=== PATIENT | female | born 1935 | race Caucasian/White ===

== ENCOUNTER 2023-07-21 08:09 | Emergency (ER) | payer MEDICARE, SELFPAY ==
[2023-07-21 08:10] VITALS: BP 159/77; PULSE 75; RESP 16; TEMP 36.7; O2SAT 98; BMI 25.4
--- NOTE | 2023-07-21 08:12 | ED.FALL1 ---
HPI - Fall General Chief Complaint: Fall Stated Complaint: FALL Time Seen by Provider: 07/21/23 08:12 History of Present Illness HPI Narrative: 88-year-old female presents from [facility] for a fall. She has dementia and cannot provide a good history. She apparently fell this morning and hit her left forehead and her left hand. No known LOC. No chest pain or shortness of breath. No further history is obtainable. Related Data Allergies Allergy/AdvReac Type Severity Reaction Status Date / Time No Known Drug Allergies Allergy Verified 07/21/23 08:15 Review of Systems ROS Narrative Not obtainable, dementia PFSH PFS Social History Smoking status: Former smoker Exam Narrative Exam Narrative: Nurses note and vital signs reviewed and patient is not hypoxic. General: The patient appears in no apparent distress. Patient is resting comfortably on cart. Skin: Warm, dry, no pallor noted. There is no rash noted. Head: Normocephalic, hematoma present on the left forehead. Eye: Normal conjunctiva, no drainage Ears, Nose, Mouth, and Throat: oral mucosa is moist. Nares patent. Cardiovascular: Regular Rate and Rhythm Respiratory: Patient is in no distress, no accessory muscle use, lungs are clear to auscultation, no wheezing, rales or rhonchi Back: non-tender GI: Soft and nontender Musculoskeletal: Hips have full range of motion. Bruising and swelling is present on the dorsum of her left hand. Neurological: A&O, normal speech Psychiatric: Cooperative Constitutional Vital Signs, click to edit/add: Last Vital Signs Temp 98.0 F 07/21/23 08:10 Pulse 75 07/21/23 08:10 Resp 16 07/21/23 08:10 BP 159/77 H 07/21/23 08:10 Pulse Ox 98 07/21/23 08:10 O2 Del Method Room Air 07/21/23 08:10 Course Vital Signs Vital signs: Vital Signs Temperature 98.0 F 07/21/23 08:10 Pulse Rate 75 07/21/23 08:10 Respiratory Rate 16 07/21/23 08:10 Blood Pressure 159/77 H 07/21/23 08:10 Pulse Oximetry 98 07/21/23 08:10 Oxygen Delivery Method Room Air 07/21/23 08:10 Temperature 98.0 F 07/21/23 08:10 Pulse Rate 75 07/21/23 08:10 Respiratory Rate 16 07/21/23 08:10 Blood Pressure 159/77 H 07/21/23 08:10 Pulse Oximetry 98 07/21/23 08:10 Oxygen Delivery Method Room Air 07/21/23 08:10 MDM - Fall MDM Narrative Medical decision making narrative: CAT scans and x-rays are all negative. She is ambulatory and is able to be discharged. Differential Diagnosis Differential diagnosis: Likely other (Fall, head injury, subdural hematoma, subarachnoid hemorrhage) Imaging Data CT scan - head: Radiologist's impression: ITS Impressions Cervical Spine CT 07/21/23 08:35 IMPRESSION: 1. No acute intracranial abnormality identified. 2. 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 Electronically authenticated by: YASMINE SCHMITZ Date: 07/21/2023 08:54 Hand X-Ray 07/21/23 08:35 IMPRESSION: No acute fracture Severe degenerative changes Electronically authenticated by: FATUMA ESCOTO Date: 07/21/2023 08:[address] 07/21/23 08:35 IMPRESSION: 1. No acute intracranial abnormality identified. 2. 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 Electronically authenticated by: YASMINE SCHMITZ Date: 07/21/2023 08:54 Discharge Plan Discharge Stand Alone Forms: Portal Instructions Chief Complaint: Fall Clinical Impression: Head injury, Fall Patient Disposition: Home, Self-Care Time of Disposition Decision: 09:03 Condition: Good Mode of Transportation: Private Vehicle Instructions: Fall Prevention for Older Adults (ED), Head Injury (ED) Referrals: RAJI COLLINS [Primary Care Provider] - 1 week
--- NOTE | 2023-07-21 08:35 | CT_ITS ---
The [address] [address] Patient Name: SONNY GREENE MRN: [id number] date: 1935 Sex: F Assigned Patient Location: ER Current Patient Location: ER Accession/Order Number: [id number] Exam Date: 07/21/2023 08:20 Report Date: 07/21/2023 08:54 At the request of: CHILO NOBLES Procedure: CT cervical spine wo con HEAD and cervical spine CT without contrast, 07/21/2023 8:20 AM EDT: CLINICAL HISTORY: fall, hit head. COMPARISON: None available. TECHNIQUE: Axial noncontrast CT imaging of the head and cervical spine was performed. Additional reformatted sagittal and coronal projections were also obtained. Dose reduction techniques were achieved by using automated exposure control and/or adjustment of mA and/or kV according to patient size and/or use of iterative reconstruction technique. FINDINGS: Head CT Ventricular and sulcal size is normal for the patient's age. There are moderate chronic small vessel ischemic changes. There is no mass effect, midline shift or intracranial hemorrhage. There is no evidence of acute infarction. There are no extra axial fluid collections. Visualized paranasal sinuses, mastoid air cells and orbital contents are unremarkable. There is a small left forehead hematoma. Cervical spine CT Bones are diffusely demineralized. There is no acute fracture or subluxation. Advanced degenerative disc disease is seen at most levels. 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 Minimal anterolisthesis of C7 on T1 and T1 on T2 vertebral body is also likely degenerative. There is no prevertebral soft tissue swelling. Lung apices are clear. CT/CT cervical spine wo con IMPRESSION: 1. No acute intracranial abnormality identified. 2. 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 Electronically authenticated by: YASMINE SCHMITZ Date: 07/21/2023 08:54
--- NOTE | 2023-07-21 08:35 | CT_ITS ---
The [address] [address] Patient Name: SONNY GREENE MRN: [id number] date: 1935 Sex: F Assigned Patient Location: ER Current Patient Location: ER Accession/Order Number: [id number] Exam Date: 07/21/2023 08:20 Report Date: 07/21/2023 08:54 At the request of: CHILO NOBLES Procedure: CT head/brain wo con HEAD and cervical spine CT without contrast, 07/21/2023 8:20 AM EDT: CLINICAL HISTORY: fall, hit head. COMPARISON: None available. TECHNIQUE: Axial noncontrast CT imaging of the head and cervical spine was performed. Additional reformatted sagittal and coronal projections were also obtained. Dose reduction techniques were achieved by using automated exposure control and/or adjustment of mA and/or kV according to patient size and/or use of iterative reconstruction technique. FINDINGS: Head CT Ventricular and sulcal size is normal for the patient's age. There are moderate chronic small vessel ischemic changes. There is no mass effect, midline shift or intracranial hemorrhage. There is no evidence of acute infarction. There are no extra axial fluid collections. Visualized paranasal sinuses, mastoid air cells and orbital contents are unremarkable. There is a small left forehead hematoma. Cervical spine CT Bones are diffusely demineralized. There is no acute fracture or subluxation. Advanced degenerative disc disease is seen at most levels. 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 Minimal anterolisthesis of C7 on T1 and T1 on T2 vertebral body is also likely degenerative. There is no prevertebral soft tissue swelling. Lung apices are clear. CT/CT head/brain wo con IMPRESSION: 1. No acute intracranial abnormality identified. 2. 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 Electronically authenticated by: YASMINE SCHMITZ Date: 07/21/2023 08:54
--- NOTE | 2023-07-21 08:35 | XR_ITS ---
The [address] [address] Patient Name: SONNY GREENE MRN: [id number] date: 1935 Sex: F Assigned Patient Location: ER Current Patient Location: ER Accession/Order Number: [id number] Exam Date: 07/21/2023 08:20 Report Date: 07/21/2023 08:52 At the request of: CHILO NOBLES Procedure: XR hand LT min 3V PROCEDURE: XR hand LT min 3V COMPARISON: None. HISTORY: fall FINDINGS: BONES:No acute fracture or dislocation. Severe degenerative changes with joint space narrowing marginal osteophyte formation and extensive bony remodeling. Contour deformity of the distal radius likely representing remote healed fracture SOFT TISSUES:Negative. No visible soft tissue swelling. EFFUSION:None visible. OTHER: Negative. XR/XR hand LT min 3V IMPRESSION: No acute fracture Severe degenerative changes Electronically authenticated by: FATUMA ESCOTO Date: 07/21/2023 08:52
--- NOTE | 2023-07-21 09:18 | PC.NURSE ---
ambulated pt down hallway with walker -- pt tolerated well independently. Spoke with pt's son, Jean Carlos, on the phone and states his Keena will come and pick pt up. informed dr katz
== END 2023-07-21 09:32 | disposition home or self-care (01) ==
PROVIDERS: Emergency Provider Emergency Medicine; PCP Family Medicine
DX: S09.90XA Unspecified injury of head, initial encounter (principal); F03.90 Unspecified dementia, unspecified severity, without behavioral disturbance, psychotic disturbance, mood disturbance, and anxiety; W19.XXXA Unspecified fall, initial encounter; Z87.891 Personal history of nicotine dependence
CPT/HCPCS: 70450; 72125; 73130; 99284